=== PATIENT | female | born 1975 | race Caucasian/White ===

== ENCOUNTER 2016-09-06 15:15 | Emergency (ER) | payer BC ==
[2016-09-06] MEDS ORDERED: Adacel (T-DAP) 0.5 ML VIAL ONE (15:54)
[2016-09-06] MEDS ORDERED: Cephalexin 250 MG CAP ONE (16:11)
[2016-09-06] MEDS ORDERED: Ibuprofen 200 MG TAB ONE (16:13)
--- NOTE | 2016-09-06 16:39 | ERRECORD ---
[facility] EMERGENCY RECORD HPI HAND (15:42 DHAM) CHIEF COMPLAINT: Patient presents for evaluation of injury, to the right hand. HISTORIAN: History provided by patient. MECHANISM OF INJURY: Mechanism of injury: Blunt trauma, by kick, by kicked by a horse dorsal right 4th finger distally. LOCATION: Symptoms are localized, most severe in the dorsal surface of hand, most severe in the fourth finger, at the interphalangeal joint, Right hand dominant. QUALITY: Pain is dull in nature, described as throbbing. SEVERITY: Current severity of pain rated as 3/10. TIME COURSE: Sudden onset of symptoms, 1, hours prior to arrival. ASSOCIATED WITH: No associated alcohol use, No associated clavicle pain, No associated coolness to touch, No associated decreased use, No associated distal injury, No associated distal neuro complaint, No associated elbow pain, No associated erythema, No associated fever, Associated with finger pain, to the right fourth, No associated open wounds, No associated proximal injury, No associated tingling, No associated shoulder pain, No associated warmth, No associated weakness distal to injury, No associated wrist pain, throbbing to fingerprint area of right 4th finger. EXACERBATED BY: Patient's condition exacerbated by movement. RELIEVED BY: Patient's condition relieved by remaining still. ROS (15:54 DHAM) CONSTITUTIONAL: Historian denies fever. MUSCULOSKELETAL: Historian reports injury, denies joint redness, denies joint stiffness, denies joint swelling. pain to the tip of the right 4th finger. SKIN: Historian denies pruritis, denies rash, denies skin changes. NEUROLOGIC: Historian denies paralysis, denies paresthesias. HEMO/LYMPHATIC: Historian denies abnormal blood clotting, denies easy bruising. ALLERGIC/IMMUNOLOGIC: Historian denies eczema, denies frequent infections, denies hives. PAST MEDICAL HISTORY (15:24 LGIB) MEDICAL HISTORY: Tetanus not up to date, Past medical history includes renal disease, kidney stones Verified 09/06/16. FEMALE SURGICAL HISTORY: Surgical history of section, kidney stent Verified 09/06/16. PSYCHIATRIC HISTORY: No previous psychiatric history. Verified 09/06/16. SOCIAL HISTORY: Patient has no smoking history, Patient denies alcohol use, Patient denies drug use. verified 09/06/16. FAMILY HISTORY: Family history is non-contributory to this &a-1R&a+25V*p+0X*z4479X*c202B*c15G*c2P*p-0X&a-25V&a+1R Name: Erica Ruelas : 1975 F41 MedRec: [id number] AcctNum: [id number] Prepared: Barbie Sep 07, 2016 01:22 by Interface Page 1 of 3 pMD [facility] EMERGENCY RECORD case. KNOWN ALLERGIES Sulfa (Sulfonamide Antibiotics) CURRENT MEDICATIONS (15:23 LGIB) None VITAL SIGNS (15:24 LGIB) VITAL SIGNS: BP: 106/74, Pulse: 96, Resp: 16 (Non-Labored), Temp: 98.7 (Oral), Pain: 3, O2 sat: 97 on Room Air, Time: 09/06/2016 15:24. PHYSICAL EXAM (15:55 DHAM) CONSTITUTIONAL: Vital Signs Reviewed, Patient afebrile, Pulse normal, Blood pressure normal, Respiratory rate normal, Patient appears non toxic, Patient appears, in mild pain distress, Patient alert and oriented to person, place and time, Nursing notes reviewed. UPPER EXTREMITY: only pain appears to be at the tip of the right 4th finger. Her mcp, pip and dip of this finger are nontender and have a painless and full rom. she has some ecchymosis of the plantar aspect of the distal phalanx. dorsally she has a loose fingernail that is in it's proper location and is not proximally or at the edges. It does appear to have been from the nailbed however and is draining some serous material at the tip of the intact nail. good flexion of the profundus, superficialis and extensor tendons. normal sensation and cap refill to the tip of the 4th finger. no pain or injury to any other fingers or hand or wrist. good pain free rom throughout. said that her 3th finger was hit as well but is not tender now. NEURO: Abelardo coma scale 15, Neuro exam findings include patient oriented to person, place and time, Speech normal, Gait normal, Memory normal, no focal motor deficits, no focal sensory deficits. SKIN: Skin exam included findings of skin warm, dry, and normal in color, no rash. RADIOLOGYINTERPRETATION (16:02 DHAM) UPPER EXTERMITIES: Radiological interpretation of, the right fingers shows, fracture noted, to distal phalanx, 4th finger, tuft fracture not significantly displaced. MEDICATION ADMINISTRATION SUMMARY Drug Name: Motrin, Dose Ordered: 600 mg, Route: Oral, Status: Given, Time: 16:14 09/06/2016, Drug Name: Keflex, Dose Ordered: 500 mg, Route: Oral, Status: Given, Time: 16:10 09/06/2016, Drug Name: Adacel(Tdap Adolesn/Adult)(PF), Dose Ordered: 0.5 mL, Route: Intramuscular, Status: Given, Time: 15:57 09/06/2016, Detailed &a-1R&a+25V*p+0X*u3345X*c202B*c15G*c2P*p-0X&a-25V&a+1R Name: Erica Ruelas : 1975 F41 MedRec: [id number] AcctNum: [id number] Prepared: [facility] Sep 07, 2016 01:22 by Interface Page 2 of 3 pMD [facility] EMERGENCY RECORD record available in Medication Service section. PROBLEM LIST No recorded problems DIAGNOSIS (16:08 [facility]) FINAL: PRIMARY: tuft fracture right 4th finger - closed tx not displaced. PRESCRIPTION (16:07 [facility]) Keflex: CAPSULE (HARD, SOFT, ETC.) : 500 mg : ORAL : Quantity: 1 Unit: cap(s) Route: ORAL Schedule: 3 times a day Dispense: 21 Unit: cap(s) May substitute. Refills: No Refills . NOTES: T 1 cap po tid for 7 days. Just in case for infection No refills. DISPOSITION PATIENT: Disposition Type: Discharge, Disposition: *Discharge Home. (16:08 [facility]) Patient left the department. (16:28 [facility]) Weems: MARSHALL=MD Jackie, Herve LGIB=CHRISTELLE Oconnell, Brandi &a-1R&a+25V*p+0X*[id number]*c202B*c15G*c2P*p-0X&a-25V&a+1R Name: Erica Ruelas : 1975 F41 MedRec: [id number] AcctNum: [id number] Prepared: Barbie Sep 07, 2016 01:22 by Interface Page 3 of 3 pMD MTDD
--- NOTE | 2016-09-06 16:43 | PICIS ---
[facility] EMERGENCY RECORD TRIAGE (15:23 LGIB) TRIAGE NOTES: LEFT 4TH FINGER INJURY. HORSE KICKED PATIENT'S HAND UP AGAINST A PANEL AND EFFECTED HER FINGER. (15:23 LGIB) PATIENT: NAME: Erica Ruelas, AGE: 41, GENDER: female, : Barbie 1975, TIME OF GREET: SunSep 06, 2016 15:16, PREFERRED LANGUAGE: Kinyarwanda, ETHNICITY: Not or , ECODE BILLING MAP: [facility], SSN: [id number], Zip Code: [address], KG WEIGHT: 72.12, PHONE: , , , PERSON ID: [id number], PAYMENT: MICHALE Brumfield, PCP: Juan SOLIMAN ANNA. (15:23 LGIB) COMPLAINT: FINGER INJURY. (15:23 LGIB) ADMISSION: URGENCY: 4 Non Urgent, ADMISSION SOURCE: Home, TRANSPORT: CAR, BED: ER -03. (15:23 LGIB) SIRS SCORING: Heart Rate 55-109 (0), Temp range 96.8-101.1 (0), respiratory rate 12-24 (0), Mental Status altered: no (0), Total SIRS Score 0. (15:24 LGIB) PROVIDERS: TRIAGE NURSE: Brandi Oconnell RN. (15:23 LGIB) PREVIOUS VISIT ALLERGIES: Sulfa (Sulfonamide Antibiotics). (15:23 LGIB) Sulfa (Sulfonamide Antibiotics). (15:24 LGIB) KNOWN ALLERGIES Sulfa (Sulfonamide Antibiotics) CURRENT MEDICATIONS (15:23 LGIB) None VITAL SIGNS (15:24 LGIB) VITAL SIGNS: BP: 106/74, Pulse: 96, Resp: 16 (Non-Labored), Temp: 98.7 (Oral), Pain: 3, O2 sat: 97 on Room Air, Time: 09/06/2016 15:24. NURSING ASSESSMENT: EXTREMITY UPPER (15:26 LGIB) CONSTITUTIONAL: Complex assessment performed, Patient arrives ambulatory, Gait steady, History obtained from patient, Patient appears comfortable, Patient cooperative, Patient alert, Oriented to person, place and time, Skin warm, Skin dry, Skin normal in color, Mucous membranes pink, Mucous membranes moist, Patient is well-groomed, Patient complains of LEFT 4TH FINGER INJURY, FINGER INJURED 1 HOUR EYE SURGEON WHEN HORSE KICKED PATIENT'S FINGER AGAINST A PANEL. PAIN: throbbing pain, 4TH LEFT FINGER, Onset of pain 09/06/2016 1440, on a scale 0-10 patient rates pain as 3, Nothing has been tried to alleviate the pain. LEFT UPPER EXTREMITY: Left upper extremity assessment findings include capillary refill less than 2 seconds, Skin color normal to hand, Skin temperature to hand warm, Distal sensation intact, Muscle tone normal, radial pulse is +3, Inspection findings include swelling, to LEFT 4TH FINGER, DISTAL PHALANGE, BRUISING. &a-1R&a+25V*p+0X*k7696U*c202B*c15G*c2P*p-0X&a-25V&a+1R Name: Erica Ruelas : 1975 F41 MedRec: [id number] AcctNum: [id number] Prepared: Barbie Sep 07, 2016 01:22 by Interface Page 1 of 6 pMD [facility] EMERGENCY RECORD RIGHT UPPER EXTREMITY: Right upper extremity assessment findings include capillary refill less than 2 seconds, Skin color normal to hand, Skin temperature to hand warm, Distal sensation intact, Muscle tone normal, radial pulse is +3. SAFETY: Side rails up, Cart/Stretcher in lowest position, Family at bedside, Call light within reach, Hospital ID band on. NURSING PROCEDURE: NURSE NOTES (15:24 LGIB) NURSES NOTES: Notes: PT WITH ICE PACK TO FINGER EYE SURGEON. NURSING PROCEDURE: SPLINTING (15:50 LSMI) PATIENT IDENTIFIER: Patient actively involved in identification process, Patient's identity verified by patient stating name, Patient's identity verified by patient stating date, Patient's identity verified by hospital ID bracelet, Patient's identity verified by family member. SPLINTING: Splinting indicated for fracture care, Splint applied to, the fourth finger, on the right hand, by remberto townsend lvn, Notes: tdap given this visit. NURSING PROCEDURE: TRANSPORT TO TESTS TRANSPORT TO TESTS: Transport indicated to facilitate diagnosis, Patient transported to x-ray, ambulatory, Accompanied by x-ray line maintenance technician. (15:32 LGIB) FOLLOW-UP: After procedure, patient returned to emergency department. (15:37 LGIB) ORDER DETAILS Order Name: SPLINT (PRE-GAYLE), Status: Done, Time: 16:15 09/06/2016, User: LILLIAN, - Ordered for: MD Mejia Darren, - Entered by: MD Mejia Darren - SunSep 06, 2016 16:13, - Quantity: 1, Order Name: XR Finger(s) Rt Min 2 View, Status: Active, Time: 15:25 09/06/2016, User: JOSE, - Ordered for: MD Mejia Darren, - Entered by: MD Mejia Darren - SunSep 06, 2016 15:25, - Quantity: 1. MEDICATION ADMINISTRATION SUMMARY Drug Name: Motrin, Dose Ordered: 600 mg, Route: Oral, Status: Given, Time: 16:14 09/06/2016, Drug Name: Keflex, Dose Ordered: 500 mg, Route: Oral, Status: Given, Time: 16:10 09/06/2016, Drug Name: Adacel(Tdap Adolesn/Adult)(PF), Dose Ordered: 0.5 mL, Route: Intramuscular, Status: Given, Time: 15:57 09/06/2016, Detailed record available in Medication Service section. &a-1R&a+25V*p+0X*j4563B*c202B*c15G*c2P*p-0X&a-25V&a+1R Name: Erica Ruelas : 1975 F41 MedRec: [id number] AcctNum: [id number] Prepared: [facility] Sep 07, 2016 01:22 by Interface Page 2 of 6 pMD [facility] EMERGENCY RECORD MEDICATION SERVICE Adacel(Tdap Adolesn/Adult)(PF): Order: Adacel(Tdap Adolesn/Adult)(PF) (diphth,pertuss(acell),tet vac/preservative free) - Dose: 0.5 mL : Intramuscular Schedule: Now Ordered by: Herve Mejia MD Entered by: Herve Mejia MD SunSep 06, 2016 15:52 Documented as given by: Brandi Oconnell RN SunSep 06, 2016 15:57 Patient, Medication, Dose, Route and Time verified prior to administration. IM immunization, Medication administered to left deltoid, Correct patient, time, route, dose and medication confirmed prior to administration, Patient advised of actions and side-effects prior to administration, Allergies confirmed and medications reviewed prior to administration, Patient in position of comfort, Side rails up, Cart in lowest position, Family at bedside. Keflex: Order: Keflex (cephalexin monohydrate) - Dose: 500 mg : Oral Schedule: Now Ordered by: Herve Mejia MD Entered by: Herve Mejia MD SunSep 06, 2016 16:08 , Acknowledged by: Imelda Townsend LVN SunSep 06, 2016 16:09 Documented as given by: Imelda Townsend LVN SunSep 06, 2016 16:10 Patient, Medication, Dose, Route and Time verified prior to administration. Site: Medication administered P.O., Correct patient, time, route, dose and medication confirmed prior to administration, Patient advised of actions and side-effects prior to administration, Allergies confirmed and medications reviewed prior to administration, Patient in position of comfort, Side rails up, Cart in lowest position, Family at bedside, Call light in reach. Motrin: Order: Motrin (ibuprofen) - Dose: 600 mg : Oral Schedule: Now Ordered by: Herve Mejia MD Entered by: Herve Mejia MD SunSep 06, 2016 16:14 Documented as given by: Imelda Townsend LVN SunSep 06, 2016 16:14 Patient, Medication, Dose, Route and Time verified prior to administration. Site: Medication administered P.O., Correct patient, time, route, dose and medication confirmed prior to administration, Patient advised of actions and side-effects prior to administration, Allergies confirmed and medications reviewed prior to administration, Patient in position of comfort, Side rails up, Cart in lowest position, Family at bedside, Call light in reach. HPI HAND (15:42 DHAM) CHIEF COMPLAINT: Patient presents for evaluation of injury, to the right hand. HISTORIAN: History provided by patient. MECHANISM OF INJURY: &a-1R&a+25V*p+0X*e6306G*c202B*c15G*c2P*p-0X&a-25V&a+1R Name: Erica Ruelas Nimisha : 1975 F41 MedRec: [id number] AcctNum: [id number] Prepared: [facility] Sep 07, 2016 01:22 by Interface Page 3 of 6 pMD [facility] EMERGENCY RECORD Mechanism of injury: Blunt trauma, by kick, by kicked by a horse dorsal right 4th finger distally. LOCATION: Symptoms are localized, most severe in the dorsal surface of hand, most severe in the fourth finger, at the interphalangeal joint, Right hand dominant. QUALITY: Pain is dull in nature, described as throbbing. SEVERITY: Current severity of pain rated as 3/10. TIME COURSE: Sudden onset of symptoms, 1, hours prior to arrival. ASSOCIATED WITH: No associated alcohol use, No associated clavicle pain, No associated coolness to touch, No associated decreased use, No associated distal injury, No associated distal neuro complaint, No associated elbow pain, No associated erythema, No associated fever, Associated with finger pain, to the right fourth, No associated open wounds, No associated proximal injury, No associated tingling, No associated shoulder pain, No associated warmth, No associated weakness distal to injury, No associated wrist pain, throbbing to fingerprint area of right 4th finger. EXACERBATED BY: Patient's condition exacerbated by movement. RELIEVED BY: Patient's condition relieved by remaining still. ROS (15:54 DHAM) CONSTITUTIONAL: Historian denies fever. MUSCULOSKELETAL: Historian reports injury, denies joint redness, denies joint stiffness, denies joint swelling. pain to the tip of the right 4th finger. SKIN: Historian denies pruritis, denies rash, denies skin changes. NEUROLOGIC: Historian denies paralysis, denies paresthesias. HEMO/LYMPHATIC: Historian denies abnormal blood clotting, denies easy bruising. ALLERGIC/IMMUNOLOGIC: Historian denies eczema, denies frequent infections, denies hives. PAST MEDICAL HISTORY (15:24 LGIB) MEDICAL HISTORY: Tetanus not up to date, Past medical history includes renal disease, kidney stones Verified 09/06/16. FEMALE SURGICAL HISTORY: Surgical history of section, kidney stent Verified 09/06/16. PSYCHIATRIC HISTORY: No previous psychiatric history. Verified 09/06/16. SOCIAL HISTORY: Patient has no smoking history, Patient denies alcohol use, Patient denies drug use. verified 09/06/16. FAMILY HISTORY: Family history is non-contributory to this case. PHYSICAL EXAM (15:55 DHAM) CONSTITUTIONAL: Vital Signs Reviewed, Patient afebrile, Pulse &a-1R&a+25V*p+0X*l2519Y*c202B*c15G*c2P*p-0X&a-25V&a+1R Name: Erica Ruelas : 1975 F41 MedRec: [id number] AcctNum: [id number] Prepared: SunSep 07, 2016 01:22 by Interface Page 4 of 6 pMD [facility] EMERGENCY RECORD normal, Blood pressure normal, Respiratory rate normal, Patient appears non toxic, Patient appears, in mild pain distress, Patient alert and oriented to person, place and time, Nursing notes reviewed. UPPER EXTREMITY: only pain appears to be at the tip of the right 4th finger. Her mcp, pip and dip of this finger are nontender and have a painless and full rom. she has some ecchymosis of the plantar aspect of the distal phalanx. dorsally she has a loose fingernail that is in it's proper location and is not proximally or at the edges. It does appear to have been from the nailbed however and is draining some serous material at the tip of the intact nail. good flexion of the profundus, superficialis and extensor tendons. normal sensation and cap refill to the tip of the 4th finger. no pain or injury to any other fingers or hand or wrist. good pain free rom throughout. said that her 3th finger was hit as well but is not tender now. NEURO: Abelardo coma scale 15, Neuro exam findings include patient oriented to person, place and time, Speech normal, Gait normal, Memory normal, no focal motor deficits, no focal sensory deficits. SKIN: Skin exam included findings of skin warm, dry, and normal in color, no rash. EVENTS TRANSFER: Triage to Emergency Emergency Room -03. (SunSep 06, 2016 15:23 LGIB) Removed from Emergency Emergency Room -03. (16:28 LGIB) RADIOLOGYINTERPRETATION (16:02 DHAM) UPPER EXTERMITIES: Radiological interpretation of, the right fingers shows, fracture noted, to distal phalanx, 4th finger, tuft fracture not significantly displaced. PROBLEM LIST No recorded problems DIAGNOSIS (16:08 DHAM) FINAL: PRIMARY: tuft fracture right 4th finger - closed tx not displaced. DISPOSITION PATIENT: Disposition Type: Discharge, Disposition: *Discharge Home. (16:08 DHAM) Patient left the department. (16:28 LGIB) INSTRUCTION (16:12 DHAM) DISCHARGE: FINGER FRACTURE CLOSED. FOLLOWUP: Juan SOLIMAN, [facility] [address], [place] [address], . SPECIAL: Keflex 500mg three times a day for 7 days &a-1R&a+25V*p+0X*z4159O*c202B*c15G*c2P*p-0X&a-25V&a+1R Name: Erica Ruelas : 1975 F41 MedRec: [id number] AcctNum: [id number] Prepared: SunSep 07, 2016 01:22 by Interface Page 5 of 6 pMD [facility] EMERGENCY RECORD Motrin 600mg every six hours as needed for pain Keep right hand elevated for the next 24 hours Gentle ice pack to 4th finger on 30 minutes and off 30 minutes Keep splint in place for 2-3 weeks to protect finger tip from trauma. Return for redness, swelling, pus drainage or any other concerns. [facility] Keflex: CAPSULE (HARD, SOFT, ETC.) : 500 mg : ORAL : Quantity: 1 Unit: cap(s) Route: ORAL Schedule: 3 times a day Dispense: 21 Unit: cap(s) May substitute. Refills: No Refills . NOTES: T 1 cap po tid for 7 days. Just in case for infection No refills. IMAGING *SUPPLY CHARGE SHEET: Image captured from scanner. (16:00 LGIB) *DISCHARGE INSTRUCTIONS RECEIPT: Image captured from scanner. (16:00 LGIB) TETANUS CONSENT: Image captured from scanner. (16:29 LGIB) ADMIN (SunSep 07, 2016 01:20 [facility]) DIGITAL SIGNATURE: MD Mejia Darren. Weems: MARSHALL=MD Mejia Darren LGIB=CHRISTELLE Oconnell Lauren LSMI=ELISABETH Townsend Leah &a-1R&a+25V*p+0X*d9561J*c202B*c15G*c2P*p-0X&a-25V&a+1R Name: Erica Ruelas Nimisha : 1975 F41 MedRec: [id number] AcctNum: [id number] Prepared: Barbie Sep 07, 2016 01:22 by Interface Page 6 of 6 pMD MTDD
--- NOTE | 2016-09-06 16:50 | RAD ---
RIGHT FOURTH DIGIT 09/06/16 Three views of the fourth finger show a nondisplaced fracture through the terminal tuft of the dista l phalanx. The DIP joint does not appear involved. The remainder of the finger appears intact. IMPRESSION: Tuft fracture. POS: HOME
== END 2016-09-06 16:29 | disposition home or self-care (01) ==
LOC: BURERS 15:15
DX: S62.634A Displaced fracture of distal phalanx of right ring finger, initial encounter for closed fracture (principal); W55.12XA Struck by horse, initial encounter
CPT/HCPCS: 90471; 90715